=== PATIENT | female | born 1995 | race Caucasian/White ===

== ENCOUNTER 2019-07-19 22:21 | Emergency (ER) | payer MEDICAID ==
[~2019-07-19] VITALS: Ht 160 cm; Wt 65.3 kg
[2019-07-19 22:29] VITALS: BP 149/98
--- NOTE | 2019-07-19 22:34 | NUR ---
PT AMBULATED TO ER BED 1 WITH MOTHER
[2019-07-19] MEDS ORDERED: NACL 0.9% 500 ML IV ONE (22:37)
[2019-07-19] MEDS ORDERED: KETOROLAC 30 MG/ML VIAL IVP ONE (22:40)
[2019-07-19] MEDS ORDERED: ONDANSETRON 4 MG/2 ML VIAL IVP ONE (22:40)
--- NOTE | 2019-07-19 22:40 | NUR ---
24 Y/O FEMALE BIB MOTHER C/O R FLANK PAIN, X8 DAYS WORSENING X4 HRS. IN MODERATE PAIN DISTRESS AND NAUSEA. PAIN IS A 10/10 ACUTE PAIN. FACIAL GRIMACING NOTED UPON PALPATION. A/OX4 AND FOLLOWS COMMANDS. BREATHING IS SYMMETRICAL AND UNLABORED. GI:BOWEL SOUNDS HEARD ON ALL FOUR QUADRANTS. PAIN UPON PALPATING LOWER ABDOMEN AND FLANK. ERMD MADE AWARE OF STATUS. SIDE RAILSX1. PLACED ON MONITOR. WILL CONTINUE TO MONITOR DENIES MED HX, RX OR OTC.
--- NOTE | 2019-07-19 23:48 | NUR ---
PT TAKEN TO CT
--- NOTE | 2019-07-20 00:50 | NUR ---
ERMD AT BEDSIDE.
--- NOTE | 2019-07-20 00:55 | NUR ---
PATIENT IS IN NO DISTRESS AT THIS TIME. WILL CONTINUE TO MONITOR.
[2019-07-20 01:54] VITALS: BP 116/79
--- NOTE | 2019-07-20 01:54 | NUR ---
Patient discharged with v/s stable. Written and verbal after care instructions given and explained. Patient alert, oriented and verbalized understanding of instructions. Ambulatory with steady gait. All questions addressed prior to discharge. ID band removed. Patient advised to follow up with PMD. Rx of MOTRIN 600MG; TRAMADOL HYDROCHLORIDE 50MG; ZOFRAN ODT 4MG given. Patient educated on indication of medication including possible reaction and side effects. Opportunity to ask questions provided and answered.
== END 2019-07-20 01:54 | disposition home or self-care (01) ==
LOC: MED 22:21
DX: N20.0 Calculus of kidney (principal)
CPT/HCPCS: 74176; 81002; 81025; 96361; 96374; 99284; J1885; J2405; J7030